=== PATIENT | female | born 1960 | race African-American/Black ===

== ENCOUNTER → 2016-07-27 | Outpatient (CLI) | payer OTHER ==
[~2016-07-27] MED LIST: CLOPIDOGREL BIS75 MG PO; COMBIVENT U/D3 ML INH; DILAUDID2 MG PO; MEDROL DOSEPAK4 MG PO; NORVASC10 MG PO; PHENERGAN25 M1 PO; PRAVASTATIN SOD80 MG PO; PROTONIX PO; ST. JOSEPH ASP325 MG PO; ZESTRIL40 MG PO
--- NOTE | ~2016-07-27 | EKG ---
PATIENT: JADON HANNON UNIT #: [id number] Ventricular Rate: 78 BPM Atrial Rate: 78 BPM P-R Interval: 176 ms QRS Duration: 68 ms Q-T Interval: 392 ms QTC Calculation(Bezet): 446 ms P [place]: 57 degrees Calculated R [place]: 24 degrees Calculated T [place]: 19 degrees Diagnosis Line: Normal sinus rhythm Diagnosis Line: Normal ECG Diagnosis Line: No previous ECGs available Diagnosis Line: Confirmed by SHELBI WAGGONER MD ([id number]) on Diagnosis Line: 07/27/2016 10:29:29 PM INTERPRETING MD: HORTENSIA
== END | disposition home or self-care (01) ==
LOC: CAMB 12:36
DX: Z01.810 Encounter for preprocedural cardiovascular examination (principal); K43.9 Ventral hernia without obstruction or gangrene
CPT/HCPCS: 93005

== ENCOUNTER 2016-08-03 08:25 | Inpatient (IN) | payer OTHER ==
--- NOTE | ~2016-08-03 | OR ---
Unit #: [id number] #: [id number] Patient: JADON HANNON [id number] [address] [place], [place] [address] [id number] O MR#: [id number] NAME: JADON HANNON ROOM: Date of Procedure: 08/03/2016 Admission Date: 08/03/2016 Surgeon: Selvin Arevalo Jr., M.D. : 1960 Attending Physician: Selvin Arevalo Jr., M.D. Primary Care Physician: Belen Esparza A.P.R.N. PROCEDURE OPERATIVE NOTE INDICATION FOR PROCEDURE The patient is a 56-year-old obese black female who recently presented to the office complaining of a nodular mass of the upper midline approximately 4 cm above the umbilicus and it was felt she had a primary ventral hernia which was incarcerated and has not been giving her pain. She is brought in at this time for laparoscopic repair of this. PREOPERATIVE DIAGNOSIS Chronic incarcerated ventral hernia of the upper midline. POSTOPERATIVE DIAGNOSIS Chronic incarcerated ventral hernia of the upper midline, noting a small defect only 1 cm but chronic incarcerated fat within the hernia. ANESTHESIA General with endotracheal intubation and 0.5% Marcaine with epinephrine locally in the port sites. SURGEON Selvin Arevalo Jr., M.D. PROCEDURE Laparoscopic reduction and ventral hernia repair using round 4.5 inch Ventralight mesh. DESCRIPTION OF PROCEDURE The patient was positioned in supine position. After being anesthetized and intubated, she was prepped and draped in a routine fashion for laparoscopic ventral hernia repair. A 5 mm Optiview was introduced through a small incision in the right lateral abdominal wall area and the abdomen inflated. The camera was introduced. There was no evidence of any injury related to introduction of the Optiview or the camera. Brief intraabdominal exploration was carried out. The patient was noted to have incarcerated fatty tissue from the falciform within an upper midline ventral hernia. There were also some adhesions that were taken down sharply. The falciform was likewise taken down and the defect well exposed. After, an 11 mm port was placed in the right lower quadrant abdominal area and two 5 mm ports placed in the left upper and lower respectively. After the falciform was taken down with the hook cautery, the area was checked. Fatty tissue was removed from the hernia with all fat being removed that could be removed. After this was complete, the area was checked and it was felt that a 4.5 inch round mesh was indicated. Unit #: [id number] #: [id number] Patient: JADON HANNON A 4.5 inch round Ventralight mesh was tacked in four quadrants with Vicryl sutures soaked in antibiotic solution, placed intraabdominal and using the Endo Close needle. With four 1 mm incisions it was pulled up against the anterior abdominal wall with excellent coverage of the defect. This was then tacked in place with SecureStraps and after this was complete sutures holding the mesh up were then lysed. There was excellent fixation of the graft and excellent coverage of the defect noted. There was no evidence of any bleeding. At this point the fascia in the larger port site in the right lower quadrant abdominal area was then approximated using the neoClose technique and CO2 was then expressed from the abdomen. The ports were then irrigated and infiltrated with 0.5% Marcaine with epinephrine locally after removal of the ports themselves. After this was complete, wounds were again irrigated and hemostasis achieved with the Bovie cautery and the skin edges of all the wounds were approximated with stainless-steel skin clips with a skin stapling device. Sterile dressings were applied externally. Estimated blood loss less than 50 mL. The patient received less than 2000 mL of crystalloid solution during the procedure. Sponge and instrument counts correct x3. No drains used. No complications. The patient was taken to the recovery room with stable vital signs in a satisfactory condition. Dictated by... Selvin Arevalo Jr., M.D. JMB/tomasa TD: 08/03/2016 17:22 JOB #: [id number] PROCEDURE OPERATIVE NOTE Page 1 of 1 X Selvin Arevalo MD X PROCEDURE OPERATIVE NOTE
--- NOTE | ~2016-08-03 | CO ---
Unit #: [id number] #: [id number] Patient: JADON HANNON [id number] [address] [place], [place] [address] [id number] I MR#: [id number] NAME: JADON HANNON ROOM: 202 Age: 56 Sex: F Admission Date: 08/03/2016 : 1960 Attending Physician: Selvin Arevalo Jr., M.D. Primary Care Physician: Belen Esparza A.P.R.N. Consultation Date: 08/04/2016 CONSULTATION REPORT REASON FOR CONSULT Hypoxia and chest pain. HISTORY OF PRESENT ILLNESS This is a pleasant 56-year-old female with a past medical history significant for one pack per day smoking for 40 years, likely underlying COPD, hypertension, and severe GERD, who presented to the hospital for elective hernia repair. Postoperatively, patient was noted to be hypoxic needing up to four liters nasal cannula. She was supposed to be discharged the day of the procedure, but due to her hypoxia, she was kept overnight. Earlier today, patient's abdomen was getting more distended, and she started complaining of severe acid reflux with chest pain, shortness of breath, and some cough. Patient's exam is consistent with a distended abdomen and tightness in her chest with wheezing. Patient stated that she has had no gas or bowel movement since her procedure. PAST MEDICAL HISTORY 1. Presumed COPD; however, patient has never been diagnosed officially with it. 2. Hypertension. 3. Hyperlipidemia. 4. Acid reflux. PAST SURGICAL HISTORY 1. Aneurysm repair. 2. Hernia repair. FAMILY HISTORY Hypertension. SOCIAL HISTORY Patient has smoked one pack per day for the last 40 years. She drinks often, and she smokes marijuana, but she denied being a heavy drinker. ALLERGIES No known drug allergies. HOME MEDICATIONS 1. Zestril. 2. Pravastatin. 3. Norvasc. Unit #: [id number] #: [id number] Patient: JADON HANNON 4. Clopidogrel. 5. Aspirin. REVIEW OF SYSTEMS A 12-point review of systems was obtained and was negative except for what was mentioned in the History of Present Illness. PHYSICAL EXAMINATION GENERAL: Patient is in distress at this point. VITAL SIGNS: Blood pressure 151/62, respiratory rate 26, O2 saturation 96% on 4 liters nasal cannula, and temperature 98.3. HEENT: Atraumatic, normocephalic. PERRLA. EOMI. NECK: Supple. No JVD. No lymphadenopathy. CHEST: Decreased breath sounds bilaterally with diffuse wheezing. HEART: S1 and S2. No murmur, gallops, or rubs. ABDOMEN: Distended. Bowel sounds are absent. It is tender to palpation. EXTREMITIES: No edema or cyanosis. SKIN: No rashes. CENTRAL NERVOUS SYSTEM: Awake, alert, oriented x3. No focal motor/sensory deficits. DIAGNOSTIC STUDIES LABORATORY: Creatinine 0.8 and calcium 9.1. CK 594. Troponin 0.05. White blood count 9.6 and platelets 274,000. IMAGING: Chest x-ray is concerning for atelectasis. ASSESSMENT 1. Acute hypoxic respiratory failure. 2. Acute exacerbation of chronic obstructive pulmonary disease. 3. Severe gastroesophageal reflux disease. 4. Chest pain, atypical. 5. Morbid obesity. 6. Hypertension. 7. Hyperlipidemia. PLAN 1. Will start patient on DuoNeb and aggressive pulmonary toilet. Will add incentive spirometry and encourage use every one to two hours. Currently, she is up to 0.9 liters. 2. Nicotine patches. 3. Will add Protonix and GI cocktail. 4. DVT prophylaxis. 5. Aggressive bowel regime. 6. Given her history of aspirin, Plavix, and drinking, patient may need to be evaluated for gastric ulcer at some point. I would like to thank Dr. Santoyo for allowing me to be part of this patient's care. Dictated by... Ke Dickey TD: 08/04/2016 18:33 JOB #: [id number] Unit #: [id number] #: [id number] Patient: JADON HANNON CONSULTATION REPORT Page 1 of 1 X MYRON THAPA MD CONSULTATION REPORT
--- NOTE | ~2016-08-03 | DS ---
Unit #: [id number] #: [id number] Patient: JADON HANNON [id number] [address] [place], [place] [address] [id number] I MR#: [id number] NAME: JADON HANNON. ROOM: 202 Age: 56 Sex: F Admission Date: 08/03/2016 : 1960 Discharge Date: 08/06/2016 Attending Physician: Selvin Arevalo Jr., M.D. Primary Care Physician: Belen Esparza A.P.R.N. DISCHARGE SUMMARY ADMITTING/FINAL DIAGNOSIS Incarcerated ventral hernia. SECONDARY DIAGNOSES 1. Morbid obesity. 2. Postoperative hypoxemia. 3. Severe postoperative pain requiring IV pain medications. PROCEDURES PERFORMED Laparoscopic ventral hernia repair on the day of admission. HOSPITAL COURSE The patient is an obese 56-year-old black female who presented to the office recently complaining of an incarcerated ventral hernia in the upper midline. She was brought in at this time for laparoscopic repair of this. Physical examination revealed the hernia as well as some obesity. Otherwise it was unremarkable. She gives a history of a cerebral aneurysm which has been stable. The patient was admitted and underwent laparoscopic ventral hernia repair. Postoperative the patient had severe pain, requiring IV pain medications and also some hypoxemia. She was seen by pulmonary and has been treated appropriately for this. At present she is nonlabored with her breathing. She is ambulating well. Abdomen is soft and mildly tender. Wounds are clean and healing well. DISPOSITION The plan will be to discharge the patient home in satisfactory condition. FOLLOWUP Will have her return to the office in approximately a week for staple removal and further followup. ACTIVITY She will be keeping her wounds clean and dry and lifting no more than 5-10 pounds. Normal activity. DISCHARGE MEDICATIONS Resume home medications. Dictated by... Selvin Arevalo Jr., M.D. Unit #: [id number] #: [id number] Patient: JADON HANNON CHALINO/gz TD: 08/07/2016 11:22 JOB #: [id number] DISCHARGE SUMMARY Page 1 of 1 X Selvin Arevalo MD DISCHARGE SUMMARY
--- NOTE | ~2016-08-03 | EKG ---
PATIENT: JADON HANNON UNIT #: [id number] Ventricular Rate: 106 BPM Atrial Rate: 106 BPM P-R Interval: 166 ms QRS Duration: 68 ms Q-T Interval: 336 ms QTC Calculation(Bezet): 446 ms P [place]: 75 degrees Calculated R [place]: 33 degrees Calculated T [place]: 69 degrees Diagnosis Line: Sinus tachycardia Diagnosis Line: Otherwise normal ECG Diagnosis Line: When compared with ECG of 04-AUG-2016 16:03, Diagnosis Line: (unconfirmed) Diagnosis Line: Vent. rate has increased BY 40 BPM Diagnosis Line: Confirmed by AMY CAIN MD ([id number]) on 08/08/2016 Diagnosis Line: 3:56:30 PM INTERPRETING MD: PAYTON STEINBERG
--- NOTE | ~2016-08-03 | CR72 ---
[facility] A Service of [facility] & [facility] RADIOLOGY TEXT RESULTS PATIENT: JADON HANNON LOCATION: [facility] : [birth year] UNIT #: [id number] AGE: [address]: Selvin Arevalo MD SEX: F ORDER DR: [id number] [facility] [address] [facility]. [place], [place] [address] [id number] I MR#: [id number] Acc #: [id number] NAME: JADON HANNON : 1960 SEX: F STUDY DATE/TIME: 08/04/2016 16:29 UNIT: [facility] ROOM: Formerly named [facility] STUDY DESCRIPTION: CR Chest Single View Portable Attending Physician: Selvin Arevalo Jr., M.D. Ordering Physician: Selvin Arevalo Jr., M.D. Primary Care Physician: Belen Esparza A.P.R.N. MEDICAL IMAGING REPORT This report is preliminary unless electronic signature is present EXAM Portable AP view of the chest. COMPARISON None. INDICATION 56-year-old female with dyspnea and chest pain since yesterday. History of hypertension. FINDINGS/IMPRESSION Low lung volumes with bibasilar opacities favoring atelectasis over pneumonia. Clinical correlation recommended. No pleural effusion. Dictated by... Rusty Rushing M.D. THIS IS AN ELECTRONICALLY VERIFIED REPORT Rusty Rushing M.D. at 08/06/2016 4:36 PM Piero TD: 08/04/2016 17:44 JOB #: [id number] MEDICAL IMAGING REPORT Page 1 of 1 COPY
--- NOTE | ~2016-08-03 | EKG ---
PATIENT: JADON HANNON UNIT #: [id number] Ventricular Rate: 66 BPM Atrial Rate: 66 BPM P-R Interval: 150 ms QRS Duration: 74 ms Q-T Interval: 406 ms QTC Calculation(Bezet): 425 ms P [place]: 56 degrees Calculated R [place]: 87 degrees Calculated T [place]: 99 degrees Diagnosis Line: Normal sinus rhythm with sinus arrhythmia Diagnosis Line: Normal ECG Diagnosis Line: When compared with ECG of 27-JUL-2016 14:03, Diagnosis Line: Questionable change in QRS axis Diagnosis Line: Confirmed by AMY CAIN MD ([id number]) on 08/08/2016 Diagnosis Line: 3:50:41 PM INTERPRETING MD: PAYTON STEINBERG
[~2016-08-03 08:25] MED LIST changes: -COMBIVENT U/D3 ML INH; -DILAUDID2 MG PO; -MEDROL DOSEPAK4 MG PO; -PHENERGAN25 M1 PO; -PROTONIX PO
[2016-08-04 16:22] LABS: HEMATOCRIT 41.3 % (35.0-45.0); HEMOGLOBIN 12.9 gm/dL (12.0-16.0); MEAN CELL VOLUME 84.4 FL (83-96); MEAN CORPUSCULAR HEMOGLOBIN 26.5 PG (28-34); MEAN CORPUSCULAR HGB CONC 31.4 g/dL (30-36); MEAN PLATELET VOLUME 7.6 FL (6.5-11.5); RED BLOOD COUNT 4.89 X10e (3.90-5.30); RED CELL DISTRIBUTION WIDTH 16.3 % (11.0-15.5); WHITE BLOOD COUNT 9.6 X10e3 (4.0-10.5)
[2016-08-04 16:34] LABS: PARTIAL THROMBOPLASTIN TIME 24.7 SECONDS (23.5-31.3); PROTHROMBIN TIME (PATIENT) 10.1 SECONDS (9.6-11.5)
[2016-08-04 16:58] LABS: ALBUMIN SERUM 4.2 g/dL (3.5-5.0); BILIRUBIN,TOTAL 0.7 mg/dL (0.2-2.0); BUN/CREATININE RATIO 13.75; CALCIUM SERUM 9.1 mg/dL (8.4-10.2); CREATININE SERUM 0.8 mg/dL (0.6-1.4); GLOM FILT RATE Estimated 95.6 mL/min (>60); POTASSIUM 3.8 mmol/L (3.5-5.1); PROTEIN TOTAL SERUM 7.5 g/dL (6.0-8.3)
[2016-08-05 06:30] LABS: BASOPHIL% 0.4 % (0-2.5); HEMATOCRIT 39.7 % (35.0-45.0); HEMOGLOBIN 12.4 gm/dL (12.0-16.0); LYMPHOCYTE# 0.9 X10e3 (1.0-3.5); LYMPHOCYTE% 8.7 % (17.0-45.0); MEAN CELL VOLUME 83.9 FL (83-96); MEAN CORPUSCULAR HEMOGLOBIN 26.3 PG (28-34); MEAN CORPUSCULAR HGB CONC 31.3 g/dL (30-36); MEAN PLATELET VOLUME 7.9 FL (6.5-11.5); MONOCYTE# 0.5 X10e3 (0-1.0); NEUTROPHIL# 9.2 X10e3 (1.5-7.1); NEUTROPHIL% 85.9 % (40-75); PLATELET COUNT 258 X10e3 (140-420); RED BLOOD COUNT 4.73 X10e (3.90-5.30); RED CELL DISTRIBUTION WIDTH 16.4 % (11.0-15.5); WHITE BLOOD COUNT 10.8 X10e3 (4.0-10.5)
[2016-08-05 06:33] LABS: DIFF IND NO
[2016-08-05 07:31] LABS: PROCALCITONIN <0.05 NG/ML
[2016-08-05 07:37] LABS: BLOOD UREA NITROGEN 9 mg/dL (9-23); BUN/CREATININE RATIO 12.85; CALCIUM SERUM 9.2 mg/dL (8.4-10.2); CARBON DIOXIDE 27 mmol/L (22-31); CHLORIDE 100 mmol/L (100-111); CREATININE SERUM 0.7 mg/dL (0.6-1.4); GLOM FILT RATE Estimated 112.3 mL/min (>60); GLUCOSE FASTING 149 mg/dL (70-110); POTASSIUM 4.3 mmol/L (3.5-5.1); SODIUM 134 mmol/L (135-145)
[2016-08-06] MEDS ORDERED: DILAUDID2 MG PO (11:14)
[2016-08-06] MEDS ORDERED: MEDROL DOSEPAK4 MG PO (11:15)
[2016-08-06] MEDS ORDERED: COMBIVENT U/D3 ML INH (11:16)
[2016-08-06] MEDS ORDERED: PROTONIX PO (11:16)
[2016-08-06] MEDS ORDERED: PHENERGAN25 M1 PO (11:18)
== END 2016-08-06 14:04 | disposition home or self-care (01) | DRG 981 ==
LOC: CSUR 08:25 → C2A 17:00
PROVIDERS: Surgery
PROC: 0WUF4JZ Supplement Abdominal Wall with Synthetic Substitute, Percutaneous Endoscopic Approach (ICD-10-PCS; principal; 2016-08-03 10:00)
DX: J95.89 Other postprocedural complications and disorders of respiratory system, not elsewhere classified (principal); J95.821 Acute postprocedural respiratory failure; K43.6 Other and unspecified ventral hernia with obstruction, without gangrene; J44.1 Chronic obstructive pulmonary disease with (acute) exacerbation; E66.01 Morbid (severe) obesity due to excess calories; J98.11 Atelectasis; I10 Essential (primary) hypertension; Z86.73 Personal history of transient ischemic attack (TIA), and cerebral infarction without residual deficits; Z68.32 Body mass index [BMI] 32.0-32.9, adult; E78.5 Hyperlipidemia, unspecified; K21.9 Gastro-esophageal reflux disease without esophagitis; F17.210 Nicotine dependence, cigarettes, uncomplicated; R07.89 Other chest pain; Z91.040 Latex allergy status; G89.18 Other acute postprocedural pain
CPT/HCPCS: 71010; 80048; 80053; 82308; 82550; 82947; 84484; 85025; 85027; 85610; 85730; 93005; 94640; 94760; C9113; J0330; J0360; J0690; J1170; J1650; J2405; J2710; J2920; J2930; J3010